=== PATIENT | male | born 1985 | race Caucasian/White ===

== ENCOUNTER 2018-12-11 12:57 | Emergency (ER) | payer OTHER ==
[2018-12-11] MEDS ORDERED: ONDANSETRON HCL/PF 4 MG/2 ML VIAL ONE (16:58)
[2018-12-11] MEDS ORDERED: ONDANSETRON HCL/PF 4 MG/2 ML VIAL IVP ONE (17:00)
[2018-12-11] MEDS ORDERED: IV NS 0.9% 1,000 ML BAG IV ONE (17:00)
== END 2018-12-11 22:27 | disposition home or self-care (01) ==
DX: F10.129 Alcohol abuse with intoxication, unspecified (principal); R41.82 Altered mental status, unspecified; Y90.8 Blood alcohol level of 240 mg/100 ml or more
CPT/HCPCS: 36415; 70450; 80048; 80076; 80305; 80307 ×2; 80329; 81001; 85025; 96361; 96374; 99284; G0480; J2405; J7030

== ENCOUNTER 2019-08-14 03:54 | Emergency (ER) | payer OTHER ==
[~2019-08-14] VITALS: Ht 177.8 cm; Wt 68.0 kg
[2019-08-14] MEDS ORDERED: IV D5/ 0.9% NACL 1,000 ML IV ONE (04:19)
[2019-08-14] MEDS ORDERED: CHLORDIAZEPOXIDE HCL 25 MG CAPSULE ONE (04:21)
[2019-08-14] MEDS ORDERED: LORAZEPAM INJ 2 MG/ML VIAL IV ONE (04:30)
[2019-08-14] MEDS ORDERED: CHLORDIAZEPOXIDE HCL 25 MG CAPSULE PO ONE (04:30)
--- NOTE | 2019-08-14 04:47 | NUR ---
PATIENT CAME TO ER BED 10 C/O ALCOHOL WITHDRAWL. PATIENT STATES, "THE CORONAVIRUS IS A HOAX, THESE DOCTORS ON [employer] INTERVIEWED BY [employer] SAID THAT IT IS". PATIENT STATES HE DRANK ALCOHOL AND IS PLANNING ON STOPPING HIS DRINKING HABITS BY ATTENDING A MEETING TOMORROW. AAOX4. NO SOB. BREATHING EVENLY AND UNLABORED ON ROOM AIR. CONNECTED TO [employer] INSPECTOR.
--- NOTE | 2019-08-14 04:53 | NUR ---
BLOOD AND URINE COLLECTED AND SENT TO THE LAB
[2019-08-14 04:56] LABS: BASOPHILS # (AUTO) 0.1 /CMM (0.0-0.2); BASOPHILS % (AUTO) 0.4 % (0.0-2.0); EOSINOPHILS % (AUTO) 0.2 % (0.0-6.0); HEMATOCRIT 54 % (39-51); LYMPHOCYTES # (AUTO) 1.8 /CMM (0.8-4.8); LYMPHOCYTES % (AUTO) 14.9 % (20.0-44.0); MEAN CORPUSCULAR HGB CONC 35 g/dl (31.0-36.0); MEAN CORPUSCULAR VOLUME 93 fL (80-96); MONOCYTES # (AUTO) 0.6 /CMM (0.1-1.30); MONOCYTES % (AUTO) 4.8 % (2.0-12.0); NEUTROPHILS # (AUTO) 9.8 /CMM (1.8-8.9); NEUTROPHILS % (AUTO) 79.7 % (43.0-81.0); PLATELET COUNT (AUTO) 203 /CMM (150-450); RED BLOOD CELL COUNT(AUTO) 5.85 MIL/uL (4.5-6.0); WHITE BLOOD COUNT (AUTO) 12.3 K/uL (4.3-11.0)
[2019-08-14] MEDS ORDERED: LORAZEPAM INJ 2 MG/ML VIAL ONE (05:02)
[2019-08-14 05:07] LABS: CALCIUM, SERUM 8.9 mg/dL (8.5-10.1); CREATININE 1.2 mg/dL (0.6-1.3)
[2019-08-14 05:15] LABS: ALBUMIN 4.9 g/dL (3.4-5.0); BILIRUBIN,DIRECT 0.4 mg/dL (0.0-0.2); BILIRUBIN,TOTAL 1.4 mg/dL (0.2-1.0); TOTAL PROTEIN, SERUM 7.6 g/dL (6.4-8.2)
--- NOTE | 2019-08-14 05:45 | NUR ---
Patient is ambulatory with a steady gait.
--- NOTE | 2019-08-14 05:45 | NUR ---
IV removed. Catheter intact and site benign. Pressure and 4x4 applied to site. No bleeding noted.
--- NOTE | 2019-08-14 05:45 | NUR ---
Patient discharged to home in stable condition. Written and verbal after care instructions given. Patient verbalizes understanding of instruction.
[2019-08-14 05:46] VITALS: BP 123/85
--- NOTE | 2019-08-14 05:47 | NUR ---
Patient instructed not to drive under the influence of prescription benzodiazepine. Patient called [employer] to drive patient home.
[2019-08-14 06:10] LABS: LYMPHOCYTES % (MANUAL) 20 % (16-48); MONOCYTES % (MANUAL) 4 % (0-11.0); NEUTROPHILS % (MANUAL) 76 (42-76)
== END 2019-08-14 05:48 | disposition home or self-care (01) ==
LOC: ER 03:57
DX: F10.239 Alcohol dependence with withdrawal, unspecified (principal); R11.10 Vomiting, unspecified; Y90.8 Blood alcohol level of 240 mg/100 ml or more
CPT/HCPCS: 36415; 80048; 80076; 80305; 80307; 83690; 85025; 93005; 96361; 96374; 99284; J2060; G0480